=== PATIENT | male | born 1935 | race Two or more races ===

== ENCOUNTER 2017-07-29 17:55 | Emergency (ER) | payer OTHER ==
--- NOTE | 2017-07-29 17:57 | PDOC ---
History of Present Illness <Sonia Ruiz - Last Filed: 07/29/17 18:40> - General History Source: Patient Exam Limitations: No Limitations - History of Present Illness Initial Comments: 07/29/17 18:43 The patient is a 81 year old male, with a significant past medical history of BPH, enlarged prostate, two prior CVA, and hypertension, who presents to the emergency department with urinary retention s/p flight from [place]. The patient reports his last urinary output was yesterday at 7pm and reports urinating only droplets approx. hour ago. The patient reports he is currently on the medication Flomax. He denies any recent dysuria prior to the urinary retention. He denies hematuria. He denies recent fever, chills, headache or dizziness. He denies any recent nausea, vomit, diarrhea or constipation. He denies any recent chest pain or shortness of breath. Allergies: NKA Past surgical history: None reported. Primary Care Physician: Dr. Contreras <Kenyon Van - Last Filed: 07/29/17 18:43> <Luis Ayala - Last Filed: 07/29/17 19:26> - General Chief Complaint: Urinary Problem Stated Complaint: URINARY RETENTION Time Seen by Provider: 07/29/17 17:57 Past History <Sonia Ruiz - Last Filed: 07/29/17 18:40> <Kenyon Van - Last Filed: 07/29/17 18:43> <Luis Ayala - Last Filed: 07/29/17 19:26> - Past Medical History Allergies/Adverse Reactions: Allergies Allergy/AdvReac Type Severity Reaction Status Date / Time No Known Allergies Allergy Verified 07/29/17 18:25 Home Medications: Ambulatory Orders Amlodipine Besylate [Norvasc -] 10 mg PO DAILY 07/29/17 Clopidogrel Bisulfate [Plavix -] 75 mg PO DAILY 07/29/17 Metformin HCl 500 mg PO DAILY 07/29/17 Metoprolol Succinate [Toprol Xl] 100 mg PO DAILY 07/29/17 Rosuvastatin Calcium [Crestor] 10 mg PO HS 07/29/17 Tamsulosin HCl [Flomax] 0.4 mg PO HS 07/29/17 Review of Systems - Review of Systems Comments:: 07/29/17 18:44 GENERAL/CONSTITUTIONAL: No fever or chills. No weakness. HEAD, EYES, EARS, NOSE AND THROAT: No change in vision. No ear pain or discharge. No sore throat. CARDIOVASCULAR: No chest pain or shortness of breath. RESPIRATORY: No cough, wheezing, or hemoptysis. GASTROINTESTINAL: No nausea, vomiting, diarrhea or constipation. GENITOURINARY: +Urinary retention. No hematuria. MUSCULOSKELETAL: No joint or muscle swelling or pain. No neck or back pain. SKIN: No rash NEUROLOGIC: No headache, vertigo, loss of consciousness, or change in strength/ sensation. ENDOCRINE: No increased thirst. No abnormal weight change. HEMATOLOGIC/LYMPHATIC: No anemia, easy bleeding, or history of blood clots. ALLERGIC/IMMUNOLOGIC: No hives or skin allergy. <Kenyon Van - Last Filed: 07/29/17 18:43> *Physical Exam - Physical Exam Comments: 07/29/17 18:44 GENERAL: Awake, alert, and fully oriented HEAD: No signs of trauma EYES: PERRLA, EOMI, sclera anicteric, conjunctiva clear ENT: Auricles normal inspection, hearing grossly normal, nares patent, oropharynx clear without exudates. Moist mucosa NECK: Normal ROM, supple, no lymphadenopathy, JVD, or masses LUNGS: Breath sounds equal, clear to auscultation bilaterally. No wheezes, and no crackles HEART: Regular rate and rhythm, normal S1 and S2, no murmurs, rubs or gallops ABDOMEN: Soft, nontender, normoactive bowel sounds. No guarding, no rebound. No masses EXTREMITIES: Normal range of motion, no edema. No clubbing or cyanosis. No cords, erythema, or tenderness NEUROLOGICAL: Cranial nerves II through XII grossly intact. Normal speech, normal gait SKIN: Warm, Dry, normal turgor, no rashes or lesions noted. <Kenyon Van - Last Filed: 07/29/17 18:43> - Vital Signs Last Vital Signs Temp Pulse Resp BP Pulse Ox 97.6 F 70 16 146/76 98 07/29/17 17:56 07/29/17 18:51 07/29/17 18:51 07/29/17 18:51 07/29/17 18:51 <Luis Ayala - Last Filed: 07/29/17 19:26> ED Treatment Course - ADDITIONAL ORDERS Additional order review: Laboratory Results 07/29/17 18:05 Urine Color Yellow Urine Appearance Clear Urine pH 7.0 Ur Specific [place] 1.020 Urine Protein 1+ H Urine Glucose (UA) Negative Urine Ketones Negative Urine Blood 3+ H Urine Nitrite Negative Urine Bilirubin Negative Urine Urobilinogen 0.2 Ur Leukocyte Esterase Negative <Kenyon Van - Last Filed: 07/29/17 18:43> - LABORATORY CBC & Chemistry Diagram: 07/29/17 18:40 07/29/17 18:40 - ADDITIONAL ORDERS Additional order review: Laboratory Results 07/29/17 07/29/17 18:40 18:05 Sodium 134 L Potassium 4.8 Chloride 99 Carbon Dioxide 25 Anion Gap 10 BUN 22 H Creatinine 1.0 Creat Clearance w eGFR > 60 Random Glucose 131 H Calcium 9.5 Total Bilirubin 0.9 AST 24 ALT 15 Alkaline Phosphatase 94 H Total Protein 7.7 Albumin 4.3 Urine Color Yellow Urine Appearance Clear Urine pH 7.0 Ur Specific [place] 1.020 Urine Protein 1+ H Urine Glucose (UA) Negative Urine Ketones Negative Urine Blood 3+ H Urine Nitrite Negative Urine Bilirubin Negative Urine Urobilinogen 0.2 Ur Leukocyte Esterase Negative Urine RBC 30-50 Urine WBC 0-2 Ur Epithelial Cells 0-1 07/29/17 18:40 RBC 4.96 MCV 80.0 MCHC 34.0 RDW 13.7 MPV 10.3 Neutrophils % 81.4 Lymphocytes % 9.3 Monocytes % 8.7 Eosinophils % 0.3 Basophils % 0.3 <Luis Ayala - Last Filed: 07/29/17 19:26> Medical Decision Making - Medical Decision Making 07/29/17 18:28 a/p: 81yo male with urinary retention -hx of BPH, on flomax -recent travel back from [place] -last urination was at 7p last night -labs, arredondo, ua 07/29/17 18:28 arredondo placed with 1200cc output of clear yellow urine 07/29/17 18:40 pt will be signed out to the oncoming ED physician pending labs. <Sonia Ruiz - Last Filed: 07/29/17 18:40> *DC/Admit/Observation/Transfer - Discharge Dispostion Admit: No - Attestations Physician Attestion: 07/29/17 18:32 IDr. Sonia, DO, attest that this document has been prepared under my direction and personally reviewed by me in its entirety. I further attest, that it accurately reflects all work, treatment, procedures and medical decision -making performed by me. <Sonia Ruiz - Last Filed: 07/29/17 18:40> - Attestations Scribe Attestion: 07/29/17 18:44 Documentation prepared by Kenyon Van, acting as medical professionals for Sonia Ruiz DO. <Kenyon Van - Last Filed: 07/29/17 18:43> <Luis Ayala - Last Filed: 07/29/17 19:26> Diagnosis at time of Disposition: Acute urinary retention - Discharge Dispostion Condition at time of disposition: Stable - Referrals Referrals: Xavi Peña MD [Staff Physician] - Call tomorrow - Patient Instructions Printed Discharge Instructions: DI for Urinary Retention in Men
[2017-07-29 18:29] LABS: URINE APPEARANCE Clear; URINE BILIRUBIN Negative (NEGATIVE); URINE BLOOD 3+ (NEGATIVE); URINE GLUCOSE (UA) Negative (NEGATIVE); URINE KETONE Negative (NEGATIVE); URINE LEUK ESTERASE Negative (NEGATIVE); URINE NITRITE Negative (NEGATIVE); URINE PROTEIN 1+ (NEGATIVE); URINE UROBILINOGEN 0.2 (0.2-1.0)
[2017-07-29 18:30] LABS: URINE COLOR YELLOW
[2017-07-29 18:55] VITALS: BP 146/76; PULSE 70; TEMP 97.6; BMI 28.3
[2017-07-29 19:01] LABS: URINE RBC 30-50 /hpf (0-3); URINE WBC 0-2 (0-2)
[2017-07-29 19:07] LABS: BASOPHIL 0.3 % (0-2.0); EOSINOPHIL 0.3 % (0-4.5); MCH 27.2 pg (25.7-33.7); MEAN PLT VOLUME 10.3 fl (7.5-11.1); NEUTROPHILS 81.4 % (42.8-82.8); PLATELET COUNT 261 K/MM3 (134-434); RDW 13.7 % (11.9-15.9); WHITE BLOOD COUNT 14.2 K/mm3 (4.0-10.8)
[2017-07-29 19:12] LABS: ALBUMIN 4.3 g/dl (3.5-5.0); ALK PHOS 94 U/L (32-92); BILIRUBIN,TOTAL 0.9 mg/dl (0.2-1.0); SGOT/AST 24 U/L (10-42); SGPT/ALT 15 U/L (10-40); TOT PROT 7.7 g/dl (6.4-8.3)
[2017-07-29 19:14] LABS: ANION GAP 10 (8-16); CALCIUM 9.5 mg/dl (8.4-10.2); CO2 25 mmol/L (22-28); GLUCOSE,RANDOM 131 mg/dl (74-106)
== END 2017-07-29 19:52 | disposition home or self-care (01) ==
LOC: FER 17:55
PROC: 0T9B70Z Drainage of Bladder with Drainage Device, Via Natural or Artificial Opening (ICD-10-PCS; principal; 2017-07-29)
DX: R33.9 Retention of urine, unspecified (principal); N40.0 Benign prostatic hyperplasia without lower urinary tract symptoms; I10 Essential (primary) hypertension; Z86.73 Personal history of transient ischemic attack (TIA), and cerebral infarction without residual deficits; Z79.84 Long term (current) use of oral hypoglycemic drugs
CPT/HCPCS: 36415; 80053; 81003; 81015; 85025; 99283-25